=== PATIENT | male | born 1940 | race Caucasian/White ===

== ENCOUNTER → 2016-10-20 | Day surgery (SDC) | payer MEDICARE ==
[~2016-10-20] VITALS: Ht 167.6 cm; Wt 69.1 kg
[~2016-10-20] MED LIST: ATEN25TA PO; BACITRACIN TOP OINT 15 GM TUBE ONE; BUPIVACAINE/EPINEPHRINE 0.5% PF 30 ML VIAL ONE; CHLO25TA2 PO; DO NOT ADM ANY ANTICOAGULANT DRUGS PRN; FAMOTIDINE 20 MG/2 ML VIAL ONE; GABA100C4 PO; INSU1INJ5 SQ; LACTATED RINGER'S 1000 ML INJ 1,000 ML IV SCH; LIDOCAINE 1%/EPINEPHrine 1:100,000 SOLN 20 ML VIAL ONE; MIDAZOLAM HCL 2 MG/2 ML VIAL ONE; MINERAL OIL 10 ML VIAL ONE; NEOSTIGMINE 3 MG/3 ML SYR IV ONE; NOVOLOGP2 SQ; ONDANSETRON HCL 4 MG/2 ML VIAL IV PUSH ONE; PHENYLEPHRINE HCL 10 MG/ML VIAL IV ONE; PROPOFOL 200 MG/20 ML AMP IV ONE; SODIUM BICARBONATE 8.4% INJ 50 ML ONE; ceFAZolin 2 GM PREMIX 50 ML ONE
[2016-10-20 07:08] VITALS: BP 142/69; PULSE 50; RESP 20; TEMP 98; O2SAT 99
--- NOTE | 2016-10-20 11:43 | RADRPT ---
EXAM DATE/TIME: 10/20/2016 08:42 [facility] COMPARISON: No previous studies available for comparison. INDICATIONS : Melanoma left neck. DOSE: 1.1 mCi Tc99m Sulfur Colloid intradermal INJECTION SITE: Left Neck. RADIATION DOSE: 10.6 CTDIvol (mGy) MEDICAL HISTORY : Diabetes mellitus type 2. SURGICAL HISTORY : Cholecystectomy. Catarcts.Stent right groin. ENCOUNTER: Initial ACUITY: 1 day PAIN SCALE: 0/10 LOCATION: Left neck TECHNIQUE: Multiple injections were made per protocol. Lymphangiogram phase was obtained in addition to delayed spot views. FINDINGS: The left neck was injected and an equivocal lymph node was identified in the left supraclavicular reg ion. A marker was placed over the site. CONCLUSION: 1. Lymphoscintigraphy as above Jerome Abbott MD on October 20, 2016 at 11:40 Board Certified Radiologist. This report was verified electronically.
[2016-10-20 14:57] VITALS: BP 120/55; PULSE 65; RESP 18; TEMP 97; O2SAT 99
--- NOTE | 2016-10-25 12:30 | MP ---
cc: JOCELYN HAINES M.D. DATE OF SURGERY 10/20/2016 PREOPERATIVE DIAGNOSES 1. 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 Old scar, cyst from previous melanoma anterior. POSTOPERATIVE DIAGNOSES 1. 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 Old scar, cyst from previous melanoma anterior. OPERATION 1. Excision left neck old scar cyst, 1.5 x 1 cm. 2. Excision left neck new melanoma, 6 cm diameter excision. 3. Local advancement closure of both defects. SURGEON Dr. Haines ANESTHESIA General. INDICATIONS A 76-year-old white male with a newly diagnosed Level IV, 2.1-mm thick melanoma on the posterior lower-third of the neck. The patient also has a previous more superficial melanoma anteriorly which had been excised with a wide excision and a flap. There is a small area of thickened scar with what appears to be an implantation dermoid or a hair follicle cyst. The patient underwent a detailed explanation of the excision of the two areas. The defect would be possibly large enough to require a skin graft or, depending on the laxity of the tissue and advancement, it may be possible to convert the two into more of a rotation flap closure. The patient is willing to go ahead with the surgery. He was also scheduled to have a lymphoscintigraphy and a sentinel lymph node biopsy by Dr. Berrios, however, with the procedure this morning, did not yield any lymph node that can be directly accessed in the neck and Dr. Berrios has decided not to perform his part of the surgery. PROCEDURE The patient was brought to the operating room, was given general anesthesia in supine position. The prep and drape was done. IV antibiotic had been given. The time-out was called and completed. The biopsy site on the left posterior neck had been marked on the border. A 2-cm margin was taken on all sides. A second marking was made for the anterior cyst which is still 1/2-inch ahead of the excision border for the posterior large area. All the areas were tumesced with lidocaine 1% with epi and saline mixture. The small cyst was excised along the line of the scar obliquely and only down to the subcutaneous tissue. It was suture marked superior simply for orientation. The large area was then excised going down through the skin, through the fat, carefully dissecting the borders down to the underlying posterior edge of the sternocleidomastoid, the posterior triangle looking for the vital structures in the area, particularly the large veins and also the greater auricular nerve and also the spinal accessory nerve position. Neither one of the two were encountered. Dissection was done to remove the fascia completely off the sternocleidomastoid and maintaining that plane posteriorly the entire specimen was removed and the suture marked superior. Hemostasis was completed with a couple of suture ligation of vessels. The anterior skin and the inferior skin were mobilized further in order to provide closure of the defect. It was started from all three sides and bringing it and into the center, he center skin bridge was cut on side but utilized making a U-turn on itself to fill the remaining triangular defect. Sutures were all Vicryl internal inverting sutures. No skin sutures were needed. The patient was given a sterile dressing after clean-up. Intraoperative blood loss less than 5 cc. No complications. signed, not fully reviewed MD JENNIFER Tidwell/GLENN /12:37 PM /12:17 PM MTDSilvia
== END | disposition home or self-care (01) ==
LOC: HRAD 06:04
PROVIDERS: ATTEND Surgery
DX: C43.4 Malignant melanoma of scalp and neck (principal); L57.0 Actinic keratosis; L91.0 Hypertrophic scar; E11.9 Type 2 diabetes mellitus without complications; I10 Essential (primary) hypertension; E78.5 Hyperlipidemia, unspecified; J44.9 Chronic obstructive pulmonary disease, unspecified; Z90.49 Acquired absence of other specified parts of digestive tract
CPT/HCPCS: 00300; 11626; 14040; 78195; 88305; 88341; 88342; A9541; J0690; J2250; J2370; J2405; J2710; J3010

== ENCOUNTER → 2017-01-23 | Day surgery (SDC) | payer MEDICARE ==
[~2017-01-23] VITALS: Ht 167.6 cm; Wt 67.2 kg
[~2017-01-23] MED LIST changes: +ACETAMINOPHEN 1000 MG/100 ML VIAL IV SCH; +ACETAMINOPHEN/HYDROcodone 325 MG/5 MG TAB PO PRN; +BUPIVACAINE/EPINEPHRINE 0.5% 50 ML VIAL ONE; -BUPIVACAINE/EPINEPHRINE 0.5% PF 30 ML VIAL ONE; +CHLORHEXIDINE GLUCONATE 2 % 1 PACK (2 CLOTHS) TOPICAL PRN; +INSULIN HUMAN REGULAR 1,000 UNITS/10 ML VIAL SQ PRN; +KETOROLAC TROMETHAMINE 30 MG/ML (IVP) VIAL IV PUSH ONE; +KETOROLAC TROMETHAMINE 30 MG/ML (IVP) VIAL ONE; +LACTATED RINGER'S 1000 ML INJ 1,000 ML IV ONE; -LACTATED RINGER'S 1000 ML INJ 1,000 ML IV SCH; +LACTATED RINGER'S 1000 ML IV PRN; +METOPROLOL TARTRATE 25 MG TAB PO PRN; -MINERAL OIL 10 ML VIAL ONE; +MORPHINE SULFATE 4 MG/ML INJ IV PRN; -NEOSTIGMINE 3 MG/3 ML SYR IV ONE; +ONDANSETRON ODT 4 MG TAB PO PRN; +PHENYLEPH/NS 1000 MCG/10 ML SYR IV ONE; -PHENYLEPHRINE HCL 10 MG/ML VIAL IV ONE; +POVIDONE IODINE 5% (ANTISEPSIS KIT) 4 APPLICATIONS EACH NARE PRN; +SODIUM CHLORID 0.9% 500 ML IV PRN; +SUGAMMADEX SODIUM 200 MG/2 ML VIAL IV PUSH ONE; -ceFAZolin 2 GM PREMIX 50 ML ONE; +ePHEDrine/NS 25 MG/5 ML SYR IV ONE
[2017-01-23 10:47] VITALS: BP 143/79; PULSE 60; RESP 16; TEMP 98.1; O2SAT 97
[2017-01-23 11:17] LABS: AUTOMATED NEUTROPHIL # 4.1 TH/MM3 (1.8-7.7); BASOPHIL # 0.1 TH/MM3 (0-0.2); BASOPHIL % 0.9 % (0.0-2.0); EOSINOPHIL # 0.3 TH/MM3 (0-0.4); EOSINOPHIL % 4.7 % (0.0-4.0); HEMATOCRIT 40.4 % (39.0-51.0); HEMO FLAGS DIFF FINAL; LYMPH % 19.2 % (9.0-44.0); LYMPHOCYTE # 1.1 TH/MM3 (1.0-4.8); MEAN CELL VOLUME 94.2 FL (80.0-100.0); MEAN CORPUSCULAR HEMOGLOBIN 31.6 PG (27.0-34.0); MEAN CORPUSCULAR HGB CONC 33.5 % (32.0-36.0); MONO % 4.8 % (0.0-8.0); NEUT % 70.4 % (16.0-70.0); PLATELET COUNT 106 TH/MM3 (150-450); RED BLOOD COUNT 4.28 MIL/MM3 (4.50-5.90); RED CELL DISTRIBUTION WIDTH 13.9 % (11.6-17.2); WHITE BLOOD COUNT 5.8 TH/MM3 (4.0-11.0)
--- NOTE | 2017-01-23 13:05 | RADRPT ---
EXAM DATE/TIME: 01/23/2017 11:46 [facility] COMPARISON: LYMPHOSCINTIGRAPHY, October 20, 2016, 8:42. INDICATIONS : Enlarged lymph node. MEDICAL HISTORY : Hypertension. CAD. Liver cirrhosis. Diabetes. Skin cancer. SURGICAL HISTORY : Cholecystectomy. Bilateral cataract surgery. Coronart stent. ENCOUNTER: Initial ACUITY: 1 day PAIN SCORE: 0/10 LOCATION: Left neck. AREA EVALUATED: Left supraclavicular. FINDINGS: Ultrasound was performed of the left neck Dr. Berrios intraoperative localization. 2 distinct nodes ar e present just above the clavicle just beneath the sternocleidomastoid and superficial to the vascula r structures and thyroid. CONCLUSION: Left neck adenopathy as described above. Pro Nguyen MD FACR on January 23, 2017 at 13:01 Board Certified Radiologist. This report was verified electronically.
--- NOTE | 2017-01-23 14:23 | EKG ---
Date Performed: 01/23/2017 Time Performed: 10:41:03 PTAGE: 76 years EKG: Sinus rhythm Since previous tracing, no significant change noted NORMAL ECG PREVIOUS TRACING : 05/24/1998 22.25 DOCTOR: Zak Orellana Interpretating Date/Time 01/23/2017 14:22:17
[2017-01-23 16:14] VITALS: BP 145/70; PULSE 58; RESP 18; TEMP 97.5; O2SAT 100
--- NOTE | 2017-01-25 13:46 | MP ---
cc: MAULIK SONG DATE OF SURGERY: 01/23/2017 PREOPERATIVE DIAGNOSIS Lymphadenopathy left neck with history of malignant melanoma. POSTOPERATIVE DIAGNOSIS Lymphadenopathy left neck with history of malignant melanoma. PROCEDURE Left neck lymph node excision. ANESTHESIA General. SURGEON Yash SENIOR ACTUARIAL ANALYST Maliha Pena MS III OPERATIVE FINDINGS AND PROCEDURE The patient was brought to the operating room after having had a preoperative ultrasound performed in my presence which located the lymph node in question. Satisfactory general endotracheal anesthesia was obtained. The left neck was prepped and draped in the usual sterile fashion. A transverse skin incision was made and carried down sharply through the subcutaneous tissue with cautery being used for hemostasis. The incision was deepened to the sternocleidomastoid which was retracted aside to allow palpation in the deeper portion of the neck. The lymph node was identified as seen preoperatively and it was located just lateral to the carotid sheath. Using blunt dissection the lymph node was further exposed and further identified by palpation. It was grasped with Allis clamps and then dissected free in its entirety and sent for permanent pathology. Hemostasis was assured with the cautery. Further exploration of the area around the lymph node failed to reveal any other palpable abnormalities. The area was checked for hemostasis which was seen to be generally satisfactory. Continued hemostasis with a piece of Surgicel was placed in the area of dissection and checked a few minutes later and was still dry. It was left in place. The fascia was closed with interrupted 3-0 Vicryl sutures. The platysma layer was closed with interrupted 3-0 Vicryl sutures and the skin closed with interrupted 4-0 PDS subcuticular stitches. Steri-Strips were applied and the patient was then awakened and taken from the operating room in satisfactory condition, having tolerated the procedure without problem. Estimated blood loss was less than 5 mL. The instrument, sponge and needle counts were reported as being correct x2 at the end of the procedure. MD CHU Briggs/BIRDIE /1:06 PM /1:38 PM
== END | disposition home or self-care (01) ==
LOC: HSDC 10:09
PROVIDERS: ATTEND Surgery
DX: C77.0 Secondary and unspecified malignant neoplasm of lymph nodes of head, face and neck (principal); C80.1 Malignant (primary) neoplasm, unspecified; I12.9 Hypertensive chronic kidney disease with stage 1 through stage 4 chronic kidney disease, or unspecified chronic kidney disease; N18.2 Chronic kidney disease, stage 2 (mild); E11.51 Type 2 diabetes mellitus with diabetic peripheral angiopathy without gangrene; E11.42 Type 2 diabetes mellitus with diabetic polyneuropathy; E11.21 Type 2 diabetes mellitus with diabetic nephropathy; J44.9 Chronic obstructive pulmonary disease, unspecified; K74.60 Unspecified cirrhosis of liver; K86.1 Other chronic pancreatitis; Z01.818 Encounter for other preprocedural examination; Z01.810 Encounter for preprocedural cardiovascular examination
CPT/HCPCS: 00320; 38510; 76999; 85025; 88305; 93005; J0131; J1885; J2250; J2370; J2405; J3010; J7120

== ENCOUNTER 2017-05-08 06:08 | Day surgery (SDC) | payer MEDICARE ==
[~2017-05-08] VITALS: Ht 167.6 cm; Wt 67.7 kg
[~2017-05-08 06:08] MED LIST changes: -ACETAMINOPHEN 1000 MG/100 ML VIAL IV SCH; -ACETAMINOPHEN/HYDROcodone 325 MG/5 MG TAB PO PRN; -BACITRACIN TOP OINT 15 GM TUBE ONE; -BUPIVACAINE/EPINEPHRINE 0.5% 50 ML VIAL ONE; -CHLO25TA2 PO; -CHLORHEXIDINE GLUCONATE 2 % 1 PACK (2 CLOTHS) TOPICAL PRN; -DO NOT ADM ANY ANTICOAGULANT DRUGS PRN; -FAMOTIDINE 20 MG/2 ML VIAL ONE; -INSULIN HUMAN REGULAR 1,000 UNITS/10 ML VIAL SQ PRN; -KETOROLAC TROMETHAMINE 30 MG/ML (IVP) VIAL IV PUSH ONE; -KETOROLAC TROMETHAMINE 30 MG/ML (IVP) VIAL ONE; -LACTATED RINGER'S 1000 ML INJ 1,000 ML IV ONE; -LACTATED RINGER'S 1000 ML IV PRN; -LIDOCAINE 1%/EPINEPHrine 1:100,000 SOLN 20 ML VIAL ONE; -METOPROLOL TARTRATE 25 MG TAB PO PRN; -MIDAZOLAM HCL 2 MG/2 ML VIAL ONE; -MORPHINE SULFATE 4 MG/ML INJ IV PRN; -ONDANSETRON HCL 4 MG/2 ML VIAL IV PUSH ONE; -ONDANSETRON ODT 4 MG TAB PO PRN; -PHENYLEPH/NS 1000 MCG/10 ML SYR IV ONE; -POVIDONE IODINE 5% (ANTISEPSIS KIT) 4 APPLICATIONS EACH NARE PRN; -PROPOFOL 200 MG/20 ML AMP IV ONE; -SODIUM BICARBONATE 8.4% INJ 50 ML ONE; -SODIUM CHLORID 0.9% 500 ML IV PRN; -SUGAMMADEX SODIUM 200 MG/2 ML VIAL IV PUSH ONE; -ePHEDrine/NS 25 MG/5 ML SYR IV ONE
[2017-05-08 06:41] VITALS: BP 145/86; PULSE 65; RESP 20; TEMP 97.8; O2SAT 95
[2017-05-08] MEDS ORDERED: HYDR25TA5 PO (06:43)
[2017-05-08] MEDS ORDERED: LOSA100T PO (06:43)
[2017-05-08] MEDS ORDERED: ceFAZolin 2 GM PREMIX 50 ML - implanted port/tunneled catheter insertion IV SCH (07:00)
[2017-05-08] MEDS ORDERED: VANCOMYCIN 1000 MG/NS 250 ML - implanted port/tunneled catheter IV SCH ×2 (07:00)
[2017-05-08] MEDS ORDERED: CHLORHEXIDINE GLUCONATE 2 % 1 PACK (2 CLOTHS) TOPICAL SCH (07:00)
[2017-05-08] MEDS ORDERED: POVIDONE IODINE 5% (ANTISEPSIS KIT) 4 APPLICATIONS EACH NARE SCH (07:00)
[2017-05-08 07:12] LABS: AUTOMATED NEUTROPHIL # 2.9 TH/MM3 (1.8-7.7); BASOPHIL % 0.9 % (0.0-2.0); EOSINOPHIL # 0.2 TH/MM3 (0-0.4); EOSINOPHIL % 4.6 % (0.0-4.0); HEMATOCRIT 39.8 % (39.0-51.0); HEMO FLAGS DIFF FINAL; LYMPH % 26.7 % (9.0-44.0); LYMPHOCYTE # 1.3 TH/MM3 (1.0-4.8); MEAN CELL VOLUME 95.2 FL (80.0-100.0); MEAN CORPUSCULAR HEMOGLOBIN 32.4 PG (27.0-34.0); MEAN CORPUSCULAR HGB CONC 34.1 % (32.0-36.0); MONO % 6.1 % (0.0-8.0); NEUT % 61.7 % (16.0-70.0); PLATELET COUNT 109 TH/MM3 (150-450); RED BLOOD COUNT 4.18 MIL/MM3 (4.50-5.90); RED CELL DISTRIBUTION WIDTH 13.3 % (11.6-17.2); WHITE BLOOD COUNT 4.7 TH/MM3 (4.0-11.0)
[2017-05-08 07:22] LABS: APTT (PATIENT) 32.4 SEC (24.3-30.1); PROTHROMBIN TIME - PATIENT 10.7 SEC (9.8-11.6)
[2017-05-08] MEDS ORDERED: MIDAZOLAM HCL 2 MG/2 ML VIAL ONE ×2 (08:02)
[2017-05-08] MEDS ORDERED: SODIUM CHLORIDE 0.9% FLUSH 10 ML FLUSH IVF PRN (09:00)
--- NOTE | 2017-05-08 09:01 | PD.RAD ---
Post Procedure Progress Note Pre Procedure Diagnosis: (1) Melanoma of left side of neck Post Procedure Diagnosis: (1) Melanoma of left side of neck Procedure Date: May 08, 2017 Supervising Radiologist: Ayaz Nguyen Estimated blood loss: 2cc Anesthesia: Local, Conscious Sedation Plan of Activity Patient to Unit: [facility]OP[facility] Patient Condition: Good Additional Comments: Port placed via the right IJ catheter in good position OK for use. Full dictated report to follow See PACS Report for procedural detail/treatment Ayaz Nguyen MD May 08, 2017 09:01
[2017-05-08 09:05] VITALS: BP 115/68; PULSE 60; RESP 18; TEMP 97; O2SAT 93
[2017-05-08 09:20] VITALS: BP 122/66; PULSE 49; RESP 18; O2SAT 97
--- NOTE | 2017-05-08 09:24 | RADRPT ---
EXAM DATE/TIME: 05/08/2017 08:23 [facility] COMPARISON: No previous studies available for comparison. INDICATIONS : Patient with history of neck cancer in need of [id number] placement. MEDICAL HISTORY : HTN, Diabetes, Liver cirrhosis, CAD, Gout, Malignant neoplasm of left side of neck SURGICAL HISTORY : Coronary stent, Cholecystectomy, Lesion biopsy, EGD, Colonoscopy ENCOUNTER: Initial ACUITY: 7-11 months PAIN SCORE: 0/10 FLUORO TIME: 0.7 minutes IMAGE SERIES: 1 SEDATION TIME: 30 ACCESS: Right internal jugular vein SEDATION: 1.) 1.5 mg midazolam (Versed) IV 2.) 75 mcg fentanyl (Sublimaze) IV Prophylactic antibiotics were administered with appropriate pre-procedure timing. Vancomycin within 2 hours of procedure, Ancef (or alternative) within 1 hour of procedure. DEVICE: 1. 8 Spanish single lumen Smart power port with vortex PROCEDURE : 1. Continuous pulse oximetry and EKG monitoring. 2. Intravenous conscious sedation. 3. Ultrasound guidance for venous access. 4. Fluoroscopic guided implantable central venous port placement. The patient was placed supine. The neck was prepped in sterile fashion. Full sterile technique was u sed, including cap, mask, sterile gloves and gown, and a large sterile sheet. Hand hygiene and 2% ch lorhexidine Betadine was utilized per protocol for cutaneous antisepsis with appropriate dry time for site. Sterile gel and sterile probe cover were utilized for ultrasound guidance. The skin and sub cutaneous tissues were infiltrated with local anesthetic solution. Under direct ultrasound guidance, the right internal jugular vein was accessed. The ultrasound image s depicting access guidance were stored and saved to PACS for permanent record. A subcutaneous pocke t was created using blunt dissection. The port was introduced to the pocket. The catheter tubing wa s fed through a subcutaneous tunnel to the venotomy site. The catheter tubing was cut to a suitable length and then was introduced through a valved Peel-Away sheath and positioned with catheter tubing tip at the cavo-atrial junction level. The pocket incision was closed with subcuticular Vicryl sutur e. Steri-Strips were applied. The port was flushed and locked with heparin solution per protocol. Sterile dressing was applied to the site. The patient tolerated the procedure well. Conscious sedation was performed with the prescribed dosages and duration as above in the presence of an independent trained radiology nurse to assist in the monitoring of the patient. EKG and oximetry remained stable throughout the procedure. The patient tolerated the procedure well and there were no complications. The patient was sent to post anesthesia recovery in stable condition. CONCLUSION: Uncomplicated ultrasound and fluoroscopic guided implanted central venous port catheter placement as described in detail above. An 8 Spanish Power port was placed. Ayaz Nguyen MD on May 08, 2017 at 9:22 Board Certified Radiologist. This report was verified electronically.
[2017-05-08 09:50] VITALS: BP 131/71; PULSE 51; RESP 18; O2SAT 98
[2017-05-08 10:20] VITALS: BP 139/70; PULSE 50; RESP 18; O2SAT 98
[2017-05-08 10:50] VITALS: BP 140/80; PULSE 61; RESP 18; O2SAT 96
== END 2017-05-08 11:25 | disposition home or self-care (01) ==
LOC: HROP 06:08 → HRIP 06:14 → HROP 11:25
PROVIDERS: ATTEND Internal Medicine Hematology & Oncology
DX: Z45.2 Encounter for adjustment and management of vascular access device (principal); C43.9 Malignant melanoma of skin, unspecified; I10 Essential (primary) hypertension; E11.9 Type 2 diabetes mellitus without complications; I25.10 Atherosclerotic heart disease of native coronary artery without angina pectoris; Z95.5 Presence of coronary angioplasty implant and graft; Z79.01 Long term (current) use of anticoagulants
CPT/HCPCS: 36561; 76937; 77001; 85025; 85610; 85730; 99152; 99153; C1788; J0690; J1642; J2250; J3010; J3370; J7050